=== PATIENT | female | born 1995 | race Caucasian/White ===

== ENCOUNTER 2020-07-31 07:31 | Inpatient (IN) ==
[2020-07-31] MEDS ORDERED: OXYTOCIN 30 UNITS/500 ML BAG IV PRN ×2 (08:22→20:12)
[2020-07-31] MEDS ORDERED: ALBUTEROL HFA 8 GM INHALER INH PRN (08:24)
[2020-07-31 08:57] LABS: Hematocrit (blood only) 35.9 % (37-47); Mean Corpuscular Hemoglobin 30.2 pg (25-34); Mean Corpuscular Hgb Conc 33.4 g/dL (32-36); Mean Corpuscular Volume 90.4 fL (80-100); Mean Platelet Volume 11.8 fL (7.4-10.4); Platelet Count 201 K/uL (130-400); RDW Standard Deviation 39.2 fL (36.4-46.3); Red Blood Count 3.97 M/uL (4.2-5.4); White Blood Count 10.41 K/uL (4.8-10.8)
--- NOTE | 2020-07-31 09:15 | History & Physical Report ---
Date of Service July 31, 2020 Assessment & Plan (1) Encounter for supervision of normal in multigravida, antepartum: 25yo at 39.5 weeks GA. Elective IOL 1. Fetus: Cat 1 2. Labor: Oxytocin. Will AROM when able 3. GBS negative. 4. Vitals: WNL Admission and Anticipated Discharge Date Admission Date: July 31, 2020 History of Present Illness Primary Care Provider: NO PCP 25yo at 39.5 weeks GA. Elective IOL. uncomplicated to date. Hx of prior uncomplicated . OB Labs: Blood Type O Positive 12/26/19 Antibody Screen NEGATIVE 12/26/19 Hemoglobin 13.3 g/dL (12.0-16.0) 05/14/20 Hematocrit 38.0 % (37-47) 05/14/20 Mean Corpuscular Volume 91.3 fL (80-100) 12/26/19 Platelet Count 270 K/uL (130-400) 12/26/19 Rubella IgG Antibody Immune (Immune) 12/26/19 Rapid Plasma Reagin Nonreactive (Nonreactive) 12/26/19 Hepatitis B Surface Antigen Neg (Neg) 12/26/19 HIV (1&2) Ab and P24 Ag, 4th Gener Neg (Neg) 12/26/19 Glucose 1 Hour 50 gm Load 96 mg/dl (70-130) 05/14/20 OB Optional Labs: Chlamydia trachomatis RNA NOT DETECTED (NOT DETECTED) 12/26/19 Neisseria gonorrhoeae RNA NOT DETECTED (NOT DETECTED) 12/26/19 Labs Reviewed: declines all genetic screening declines msafp 02/20/20 SMP CF neg in [facility] declined [facility] Allergies Allergy/AdvReac Type Severity Reaction Status Date / Time animal dander Allergy Unknown runny Verified 07/31/20 08:36 nose, itchy eyes and asthmatic cefixime Allergy Unknown Unknown Verified 07/31/20 08:35 Home Medications Medication Instructions Recorded Confirmed Type valacyclovir 500 mg tablet 500 mg PO DAILY PRN 02/25/19 07/31/20 History prenat.vits,ferny,[id number] 1 tab PO DAILY 12/15/19 07/31/20 History albuterol sulfate 1 - 2 puffs INH QID PRN 07/31/20 07/31/20 History Patient History Medical History (Updated 07/31/20 @ 08:05 by Debra Nolasco) No known health problems Surgical History H/O tooth extraction S/P wisdom tooth extraction Family History Aunt Breast cancer Mother Skin cancer Anxiety Skin melanoma Family/Other Skin cancer Father Hypertension Brother Anxiety Skin melanoma Kidney disease Denies family history of Ovarian cancer Prostate cancer Myocardial infarction Colorectal cancer Social History Smoking Status: Never smoker Second Hand Exposure: No; Do You Dip or Chew Tobacco: No; Tobacco Cessation Education Requested by Patient: No Hx Alcohol Use: Yes Alcohol type: wine Hx Substance Use: No Preferred Language: Hungarian Communication Ability: Effective Visual Impairment: No Limitations Hearing Ability: Normal Sieve Repairer Required: No Beliefs That Will Affect Care: None marital status: marital status details: Xander (24) [phone] Current Living Situation: Spouse Current Living Situation Comment: lives with spouse, daughter, no pets. current occupational status: employed current occupation: [employer]. Other Information That Helps Us Care for You: No Feels Safe at Home: Yes Safety Concerns: Feels Safe At This Time Childhood Exposure to Second-Hand Smoke: No Dental Care, Regularly: Yes Physical Activity Frequency: Daily Seatbelt Use: always Sunscreen Use: Yes Do you think of yourself as: straight/heterosexual Assistive Devices: Contacts and Glasses Physical Exam Constitutional: WD/WN, vitals as above Gastrointestinal (Abdomen): Inspection/Auscultation: abdomen not distended Percussion/Palpation: abdomen soft; abdomen nontender, no guarding and abdomen not rigid Psychiatric: A+Ox3, euthymic affect Genitourinary: normal external appearance OB Exam Abdomen: + vertex Manual OB Exam: + cervical dilation 2 cm, + cervical effacement 60%, + station - 2 and + amniotic fluid OB Exam Monitor Tracing: + external FHT monitor used, + external uterine monitor used, + category I and + normal FHT variability Results & Data ([facility]) Vital Signs (Past 12 Hours) Vital Signs Temp Pulse Resp BP 07/31/20 07:41 76 135/81 07/31/20 07:40 36.8 C 76 20 135/81 Coding Level of Care Code None Diagnoses Encounter for supervision of normal in multigravida, antepartum Z34.80
[2020-07-31] MEDS: LACTATED RINGER'S 1,000 ML IV PRN ×3 (09:55→18:21)
[2020-07-31] MEDS: OXYTOCIN 30 UNITS/500 ML BAG IV PRN ×2 (09:57→16:26)
--- NOTE | 2020-07-31 12:24 | Labor Progress Brief Note ---
Date of Service July 31, 2020 Subjective Reason For Note: Routine Evaluation Assessment & Plan (1) Encounter for supervision of normal in multigravida, antepartum: 25yo at 39.5 weeks GA. Elective IOL 1. Fetus: Cat 1 2. Labor: Oxytocin. AROM clr 3. GBS negative. 4. Vitals: WNL Admission and Anticipated Discharge Date Admission Date: July 31, 2020 Physical Exam Genitourinary: OB Exam Abdomen: + vertex Manual OB Exam: + cervical dilation 2 cm, + cervical effacement 70%, + station -2 and + amniotic fluid (AROM) clear OB Exam Monitor Tracing: + external FHT monitor used, + external uterine monitor used, + category I and + normal FHT variability Results & Data ([facility]) Vital Signs (Past 12 Hours) Vital Signs Temp Pulse Resp BP 07/31/20 11:56 90 139/86 07/31/20 10:58 36.6 C 75 20 124/73 07/31/20 10:56 75 124/73 07/31/20 10:09 81 120/83 07/31/20 07:41 76 135/81 07/31/20 07:40 36.8 C 76 20 135/81 Coding Level of Care Code None Diagnoses Encounter for supervision of normal in multigravida, antepartum Z34.80
[2020-07-31] MEDS ORDERED: ePHEDrine sulfate 50 MG/ML AMP ONE (14:27)
[2020-07-31] MEDS ORDERED: fentaNYL citrate 100 MCG/2 ML VIAL ONE (14:27)
[2020-07-31] MEDS ORDERED: SODIUM CHLORIDE 0.9% INJ 10 ML VIAL ONE (14:27)
[2020-07-31] MEDS ORDERED: BUPIVACAINE 0.25% 30 ML VIAL ONE (14:27)
[2020-07-31] MEDS ORDERED: fentaNYL 2MCG/ML ROPIVACAINE 1.25MG/ML 100 ML BAG EPI ONE (14:28)
--- NOTE | 2020-07-31 14:46 | Anesthesiology Consultation ---
Date of Service July 31, 2020 Assessment & Plan Chart Review Chart Review: Acceptable Risk for Surgery, Patient NOT seen in Pre Admission Testing and Acceptable Risk for Labor Epidural Consults Requested none ASA ASA2 Proposed Anesthesia Anesthesia Type: Labor Epidural and CSE History Height/Weight Height: 5 ft 8 in Weight: 80.286 kg Allergies Allergy/AdvReac Type Severity Reaction Status Date / Time animal dander Allergy Unknown runny Verified 07/31/20 08:36 nose, itchy eyes and asthmatic cefixime Allergy Unknown Unknown Verified 07/31/20 08:35 Medications Home Medications Medication Instructions Recorded Confirmed Last Taken valacyclovir 500 mg tablet 500 mg PO DAILY PRN 02/25/19 07/31/20 Unknown prenat.vits,ferny,[id number] 1 tab PO DAILY 12/15/19 07/31/20 07/30/20 1600 albuterol sulfate 1 - 2 puffs INH QID PRN 07/31/20 07/31/20 07/03/20 08:00 Active Medications Generic Name Dose Route Start Last Admin Trade Name Ike PRN Reason Stop Dose Admin Lactated Ringer's 1,000 mls @ 125 mls/hr 07/31/20 08:22 07/31/20 14:45 Lr IV 08/02/20 08:21 125 mls/hr .Q8H PRN Administration L&D Protocol Protocol Oxytocin 30 units in 500 mls @ 6 mls/hr 07/31/20 08:24 07/31/20 11:00 Pitocin IV 08/02/20 08:23 0.36 units/hr .Q24H PRN 6 mls/hr Labor Induction/Augmentation Titration Protocol 0.36 UNITS/HR Past Medical History Medical History No known health problems Exercise / Class Metabolic Activity II 4-5 Yardwork/Stairs/Walk up hill Past Family History Family History Aunt Breast cancer Mother Skin cancer Anxiety Skin melanoma Family/Other Skin cancer Father Hypertension Brother Anxiety Skin melanoma Kidney disease Denies family history of Ovarian cancer Prostate cancer Myocardial infarction Colorectal cancer Past Surgical History Surgical History H/O tooth extraction S/P wisdom tooth extraction Past Anesthesia History No Hx of Anesthesia Complications and No Family Hx of Anesthesia Complications History of PONV No Hx of PONV and No Hx of Motion Sickness Social History Smoking Status: Never smoker Do You Dip or Chew Tobacco: No Hx Alcohol Use: Yes Alcohol type: wine Hx Substance Use: No Physical Exam Vital Signs Last Vital Signs Temp 36.7 C 07/31/20 13:04 Pulse 76 07/31/20 13:50 Resp 20 07/31/20 13:04 BP 120/79 07/31/20 13:50 Testing Laboratory Results 07/31/20 08:41 Blood Type O Positive 07/31/20 08:41 Antibody Screen NEGATIVE 07/31/20 08:41
[2020-07-31] MEDS ORDERED: diphenhydrAMINE 50 MG/ML VIAL IV PRN (15:21)
[2020-07-31] MEDS ORDERED: ONDANSETRON INJ 2 MG/ML 2 ML VIAL IV PRN (15:21)
[2020-07-31] MEDS ORDERED: fentaNYL 2MCG/ML ROPIVACAINE 1.25MG/ML 100 ML BAG EPI PRN (15:21)
[2020-07-31] MEDS ORDERED: NALOXONE HCL 1 MG in SODIUM CHLORIDE 0.9% 1000ML 1,000 ML IV PRN (15:21)
[2020-07-31] MEDS ORDERED: PROMETHAZINE HCL 25 MG in SODIUM CHLORIDE 0.9% 50 ML IV PRN (15:21)
[2020-07-31] MEDS ORDERED: ePHEDrine sulfate 50 MG/ML AMP IV PRN (15:21)
[2020-07-31] MEDS ORDERED: NALOXONE HCL 0.4 MG/1 ML VIAL/CARP IV PRN (15:21)
[2020-07-31] MEDS ORDERED: HYDROCORTISONE ACETATE 25 MG SUPP PR PRN (20:12)
[2020-07-31] MEDS ORDERED: SUPERCREAM 0.870% 15 GM JAR EXT PRN (20:12)
[2020-07-31] MEDS ORDERED: DIPHTHERIA/TETANUS/PERTUSSIS 0.5 ML SYR/VIAL IM ONE (20:12)
[2020-07-31] MEDS ORDERED: BENZOCAINE 20% AER SPR 82.5 GM CAN EXT PRN (20:12)
[2020-07-31] MEDS ORDERED: bisacodyL 10 MG SUPP PR PRN (20:12)
--- NOTE | 2020-07-31 20:19 | Anesthesia Procedure Note ---
Date of Service July 31, 2020 Anesthesia Post Epidural Note Vital Signs Vital Signs: Temp Pulse Resp BP Pulse Ox 37.2 C 76 18 115/69 98 07/31/20 19:04 07/31/20 20:17 07/31/20 20:00 07/31/20 20:17 07/31/20 19:38 Pain Intensity Abdomen: Pain Intensity: 3 Notes Mental Status: alert / awake / arousable Nausea / Vomiting: adequately controlled Pain: adequately controlled Airway Patency, RR, SpO2: stable & adequate BP & HR: stable & adequate Hydration State: stable & adequate Neuraxial Anesthesia: was administered and sensory block is resolving Anesthetic Complications: no major complications apparent Epidural: Removed without complications and With tip intact
[2020-07-31] MEDS ORDERED: IBUPROFEN 600 MG TAB PO ONE (20:21)
[2020-07-31] MEDS: DOCUSATE SODIUM 100 MG CAP PO SCH (20:35)
[2020-08-01] MEDS: IBUPROFEN 600 MG TAB PO PRN ×6 (00:21→20:30)
--- NOTE | 2020-08-01 01:46 | Delivery Summary ---
DATE OF OPERATION: 07/31/2020 PROCEDURE: Normal spontaneous vaginal delivery. SURGEON: Kyaw Alva MD PREOPERATIVE DIAGNOSES: 1. Single intrauterine at 39 weeks 5 days gestational age. 2. Elective induction of labor. POSTOPERATIVE DIAGNOSES: 1. Single intrauterine at 39 weeks 5 days gestational age. 2. Elective induction of labor. 3. Status post procedure. ESTIMATED BLOOD LOSS: 200 mL. DRAINS: None. FLUIDS: Continuous lactated Ringer. URINE OUTPUT: Not measured. COMPLICATIONS: None. FINDINGS: Viable male , weight pending, Apgars of 8 and 9 at 1 and 5 minutes respectively. INDICATIONS: Kelton is a 25-year-old, G2, P1, admitted at 39 weeks 5 days gestational age for elective induction of labor. She was initially started on oxytocin per regular protocol. She later underwent artificial rupture of membranes, received an epidural for anesthesia, progressed to complete-complete +2, and she felt a strong urge to push and pushed for approximately 5 contractions to achieve delivery. DESCRIPTION OF PROCEDURE: The patient progressed to 10 cm dilated, 100% effaced, +2 station, pushed over intact perineum with epidural anesthesia and delivered a viable male , the weight and Apgars are as noted above. Head of the delivered in FRANCHESKA position, rest into right transverse. A single nuchal cord was noted, which was easily reduced. Body and shoulders quickly followed. was noted to be vigorous soon after delivery and a 1-minute delayed cord clamping was initiated. The cord was then double clamped and cut. remained on the maternal abdomen. Cord blood was obtained. Attention was then turned to delivery of the placenta, which was delivered intact, 3-vessel cord, gentle cord traction. On inspection of the perineum, vagina, and cervix, there were noted to be no lacerations. Sponge and instrument counts were correct at the completion of the case. Both mother and are stable in the immediate post-delivery period. I attest to the content of the Intraoperative Record and any orders documented therein. Any exception s are noted below.
[2020-08-01] MEDS: ACETAMINOPHEN 325 MG TAB PO PRN ×3 (03:31→18:24)
[2020-08-01] MEDS: PRENATAL VITAMIN 1 TAB PO SCH (08:14)
[2020-08-01] MEDS: DOCUSATE SODIUM 100 MG CAP PO SCH ×2 (08:15→20:26)
[2020-08-01] MEDS: FERROUS SULFATE 325 MG TAB PO SCH (08:17)
--- NOTE | 2020-08-01 08:30 | Obstetrical Progress Note ---
Date of Service August 01, 2020 Assessment & Plan (1) Encounter for care and examination after delivery: 25yo day 1 s/p . Doing well. Routine care. Subjective Ambulation: ambulating normally Voiding: no voiding problems Passing Gas:: Yes Diet Tolerance:: regular diet Lochia:: Moderate Physical Exam Constitutional WD/WN, vitals as above Respiratory normal respiratory effort; no respiratory distress and no labored breathing Gastrointestinal (Abdomen) Inspection/Auscultation: abdomen normal to inspection; abdomen not distended Percussion/Palpation: abdomen soft; abdomen nontender, no guarding and abdomen not rigid Genitourinary OB Exam Abdomen: + fundal height Fundus: + firm and + relation to umbilicus (Below); not tender and not boggy Results & Data ([facility]) Vital Signs (Past 12 Hours) Vital Signs Temp Pulse Pulse Pulse Resp BP BP 08/01/20 07:20 36.5 C 76 18 125/78 08/01/20 03:35 36.5 C 80 16 07/31/20 23:14 36.6 C 71 16 07/31/20 22:00 36.4 C L 73 18 07/31/20 21:31 80 95/51 L 07/31/20 21:30 37.0 C 18 07/31/20 21:16 64 99/56 L 07/31/20 21:01 72 118/58 L 07/31/20 21:00 18 07/31/20 20:46 80 116/76 07/31/20 20:31 75 127/84 07/31/20 20:30 18 BP Pulse Ox 08/01/20 07:20 97 08/01/20 03:35 125/81 97 07/31/20 23:14 115/70 98 07/31/20 22:00 128/76 96 07/31/20 21:31 07/31/20 21:30 07/31/20 21:16 07/31/20 21:01 07/31/20 21:00 07/31/20 20:46 07/31/20 20:31 07/31/20 20:30
[2020-08-01] MEDS ORDERED: bisacodyL 5 MG TABEC PO SCH (20:00)
[2020-08-02] MEDS: IBUPROFEN 600 MG TAB PO PRN ×2 (00:40→06:45)
--- NOTE | 2020-08-02 06:05 | Obstetrical Progress Note ---
Date of Service August 02, 2020 Assessment & Plan (1) Encounter for care and examination after delivery: PPD#2 doing well. DC home today, instructions reviewed. Followup in office 6w . Subjective Ambulation: ambulating normally Voiding: no voiding problems Diet Tolerance:: regular diet Lochia:: Moderate Feeding Type:: breast feeding PPD#2 doing well, no concerns. Review of Systems All systems reviewed & are unremarkable except as noted in HPI & below Physical Exam Constitutional WD/WN, vitals as above no acute distress Respiratory normal respiratory effort Cardiovascular Rate/Rhythm: regular rate and regular rhythm Gastrointestinal (Abdomen) Inspection/Auscultation: abdomen normal to inspection; abdomen not distended Percussion/Palpation: abdomen soft Genitourinary OB Exam Abdomen: + fundal height Fundus: + firm; not tender Results & Data ([facility]) Vital Signs (Past 12 Hours) Vital Signs Temp Pulse Resp BP Pulse Ox 08/02/20 00:40 36.7 C 80 16 124/70 08/01/20 20:35 36.5 C 62 16 132/85 97
[2020-08-02] MEDS: DOCUSATE SODIUM 100 MG CAP PO SCH (09:26)
[2020-08-02] MEDS: FERROUS SULFATE 325 MG TAB PO SCH (09:26)
[2020-08-02] MEDS: PRENATAL VITAMIN 1 TAB PO SCH (09:27)
== END 2020-08-02 10:20 | disposition home or self-care (01) | DRG 807 ==
LOC: 4S1 07:31 → 4S2 22:00